=== PATIENT | female | born 1975 | race Caucasian/White ===

== ENCOUNTER 2018-08-26 15:43 | Outpatient (REF) | payer BC, SELFPAY ==
--- NOTE | 2018-08-26 14:45 | PAPFT_PTH ---
PATIENT: Danielle Andrews LOC: NCN #:[id number] AGE/SX: 43/F ROOM: RE08/26/[address]: Ruma Pelaez : 1975 BED: DIS: 08/26/2018 SPEC #: [id number] RECD: 08/27/18 13:03 STATUS: MADINA LINK #: [id number] BENJAMÍN: 08/26/18 14:[address]: Ruma Pelaez DEPT: [facility] Cytology RECD BY: Angie Saunders ENTERED: 08/27/18 13:03 SP TYPE: PAPFT DANYA DR: Juana Villar Tissues: 1 - CX/ENDOCX FOR PAP SMEARS Procedures: PAP THIN PREP/UVM Screening HPV DNA PROBE Comments: [id number]
[2018-08-26 21:00] LABS: Abs Immature Grans 0.01 k/cumm (0.0-0.09); Absolute Basophil Count 0.05 k/cumm (0.0-0.2); Absolute Eosinophil Count 0.13 k/cumm (0.0-0.7); Absolute Lymphocyte Count 2.64 k/cumm (1.2-3.4); Absolute Monocyte Count 0.67 k/cumm (0.11-0.7); Absolute Neutrophil Count 4.86 k/cumm (1.2-6.7); Basophils % 0.6; Eosinophils % 1.6; HCT 40.2 % (36.0-46.0); HGB 13.2 g/dL (12.0-15.5); Immature Grans % 0.1; Lymphocytes % 31.6; Mean Corp. HGB Concentration 32.8 g/dL (32.0-36.0); Mean Corpuscular Hemoglobin 27.7 pg (27.0-33.0); Mean Corpuscular Volume 84.5 fL (80-95); Mean Platelet Volume 11.5 fL (8.0-11.0); Neutrophils % 58.1; Platelet Count 246 x1000/uL (130-400); RBC 4.76 m/cumm (4.00-5.20); RBC Distribution Width 14.8 % (11.7-14.6); White Blood Cell Count 8.36 k/cumm (4.4-10.8)
[2018-08-26 21:21] LABS: Iron 42 ug/dL (50-175); Total Iron Binding Capacity 352 ug/dL (250-450); Transferrin Sat 12 % (15-50)
[2018-08-26 21:26] LABS: Anion Gap 10.2 mmol/L (3-11); BUN 14 mg/dL (7-18); CO2 25.8 mmol/L (21.0-32.0); CREATININE 0.84 mg/dL (0.55-1.02); Calcium 9.1 mg/dL (8.5-10.1); Chloride 104 mmol/L (98-107); Glucose 84 mg/dL (70-100); Potassium 3.9 mmol/L (3.5-5.1); Sodium 140 mmol/L (136-145); TSH (W/Ref FT4) 2.35 uIU/mL (0.358-3.74)
== END 2018-08-26 16:03 ==
LOC: NCHCN 15:43
PROVIDERS: PCP Nurse Practitioner Family; Visit Provider Nurse Practitioner Family
DX: Z00.00 Encounter for general adult medical examination without abnormal findings (principal); E07.9 Disorder of thyroid, unspecified; R13.10 Dysphagia, unspecified; F41.9 Anxiety disorder, unspecified; J01.90 Acute sinusitis, unspecified; Q79.6 Ehlers-Danlos syndromes; E66.3 Overweight; K30 Functional dyspepsia; Z12.4 Encounter for screening for malignant neoplasm of cervix; Z11.51 Encounter for screening for human papillomavirus (HPV)
CPT/HCPCS: 80048; 88142; 83540; 83550; 84443; 85025; 87624

== ENCOUNTER 2018-10-08 01:32 | Outpatient (CLI) | payer BC, SELFPAY ==
--- NOTE | 2018-10-08 12:00 | DI.US_ITS ---
SYMPTOMS/DIAGNOSIS: THYROID NODULE, E07.9 THYROID ULTRASOUND: Comparison report is 2013. The right lobe of the thyroid gland measures 5.6 x 1.9 x 1.8 cm. There is a complex mass seen in the right lobe. It has both solid and cystic components. It measures 2.2 x 1.4 x 1.5 cm. There has been slight increase in size compared to the prior examination (1.9 x 1.5 x 1.0 cm). Shadowing echogenic foci are seen consistent with calcification. There is peripheral and internal vascularity noted. The remainder of the right lobe is unremarkable. The left lobe measures 4.9 x 1.3 x 1.7 cm. There is a 0.3 x 0.2 x 0.5 cm anechoic avascular lesion in the right lobe. There does appear to be echogenic focus suggesting calcification internally. There is a 0.5 x 0.3 x 0.5 cm solid hypoechoic nodule in the inferior pole of the left lobe. There is internal vascularity noted. IMPRESSION: 1. Slight interval increase in size of vascular complex right lobe nodule since 2012. 2. New vascular solid nodule in the lower pole of the left lobe of the thyroid gland. 3. With increase in size of the nodule and the new nodule in the left thyroid, biopsy should be considered.
== END 2018-10-08 01:52 ==
PROVIDERS: PCP Nurse Practitioner Family; Visit Provider Nurse Practitioner Family
DX: E07.89 Other specified disorders of thyroid (principal); E04.2 Nontoxic multinodular goiter
CPT/HCPCS: 76536

== ENCOUNTER 2019-10-12 04:42 | Outpatient (CLI) | payer OTHER, SELFPAY ==
--- NOTE | 2019-10-12 14:00 | NS.NUTBLAN_ITS ---
Danielle here today for Medical Nutrition Therapy for anemia, Vit D Deficiency. Recently dx with ELS syndrome and reports weight gain, fatigue, diarrhea/constipation, hypermobility with joint dislocation requiring limited range of movement. Followed by PT weekly. Danielle is trying to lose weight but has been unable to do so for the last 2 years. Wt: 192 lbs, BMI 33. Desired weight 160-170 lbs. Diet recall indicates well balanced meals, mostly home cooked however, many days does not meet nutrient/protein needs. Fluid intake > 100 oz per day. No regular exercise plan, does 20 min of PT exercises daily. She reports excessive bleeding from menses resulting in anemia. She takes B complex, FeS04 and Vit D. To have labs drawn in October 2019 to assess levels. Danielle reports frequent digestive discomfort, alternating diarrhea/constipation and daily bloating and GERD. Estimated Needs for weight loss: 7610-0942 kcal, 90-100 g protein. Goal: 5 lbs loss per month Goal weight: 165 lbs. Intervention: Educated Danielle on how to follow lower carb, higher protein diet consisting of 0792-8345 kcal, 80-100 g protein to help her lose 1-2 lbs per week to goal weight of 165 lbs. Encouraged Danielle to have 40 min activity/exercise per day as recommended by PT. Recommend r/o of Celiac dx and other digestive disorders such as IBS, IBD. Plan: follow diet plan as recommended, fu with conventional underwriter weekly with diet log, follow up with PCP and request at next blood draw Celiac panel to r/o celiac dx, speak to PCP about digestive concerns. Continue vit/mineral supplementation as ordered by PCP. Follow up visit 11/16/19 at 2 PM. 30 min face to face
== END 2019-10-12 05:02 ==
PROVIDERS: PCP Nurse Practitioner Family; Visit Provider Nurse Practitioner Family
DX: E55.9 Vitamin D deficiency, unspecified (principal); D64.9 Anemia, unspecified; R63.5 Abnormal weight gain; Z71.3 Dietary counseling and surveillance
CPT/HCPCS: 97802

== ENCOUNTER 2019-11-30 12:21 | Outpatient (REF) | payer BC, SELFPAY ==
[2019-11-30 20:12] LABS: HCT 40.7 % (36.0-46.0); MCHC 31.9 % (32.0-36.0); MCV 87.7 fL (80-95); MPV 11.4 fL (8.0-11.0); Platelet Count 284 10^3/uL (130-400); RBC 4.64 10^6/uL (3.93-5.22); RDW 13.1 % (11.7-14.6); RDW-SD 41.8 fL; WBC 8.78 10^3/uL (4.4-10.8)
[2019-11-30 20:53] LABS: FREE T4 0.95 ng/dL (0.76-1.46); TSH 2.07 uIU/mL (0.36-3.74)
[2019-12-02 17:00] LABS: Tissue Transglutaminase Ab IgA <1.2 U/mL
== END 2019-11-30 12:41 ==
LOC: NCHCN 12:21
PROVIDERS: PCP Nurse Practitioner Family; Visit Provider Physician Assistant
DX: K58.9 Irritable bowel syndrome, unspecified (principal); E61.1 Iron deficiency; E07.9 Disorder of thyroid, unspecified
CPT/HCPCS: 85027; 83516; 84439; 84443

== ENCOUNTER 2020-12-07 13:55 | Outpatient (REF) | payer BC, SELFPAY ==
[2020-12-07 20:44] LABS: HCT 41.6 % (36.0-46.0); HGB 13.6 g/dL (11.2-15.7); MCH 28.6 pg (27.0-33.0); MCHC 32.7 % (32.0-36.0); MCV 87.6 fL (80-95); MPV 11.4 fL (8.0-11.0); Platelet Count 278 10^3/uL (130-400); RBC 4.75 10^6/uL (3.93-5.22); RDW 13.5 % (11.7-14.6); RDW-SD 43.8 fL; WBC 8.47 10^3/uL (4.4-10.8)
[2020-12-07 21:02] LABS: Iron 122 ug/dL (50-170)
[2020-12-07 21:06] LABS: Calculated LDL 112 mg/dL (<100); Cholesterol 196 mg/dL (<200); HDL Cholesterol 63 mg/dL (40-60); TSH (W/Ref FT4) 1.56 uIU/mL (0.36-3.74); Triglyceride 106 mg/dL (<150)
[2020-12-10 09:37] LABS: Vitamin D 25 Total 45.5 ng/mL (30-100)
== END 2020-12-07 13:56 | disposition home or self-care (01) ==
LOC: NCHCN 13:55
PROVIDERS: PCP Nurse Practitioner Family; Visit Provider Nurse Practitioner Family
DX: E07.9 Disorder of thyroid, unspecified (principal); E61.1 Iron deficiency; E78.5 Hyperlipidemia, unspecified; E55.9 Vitamin D deficiency, unspecified
CPT/HCPCS: 80061; 82306; 85027; 83540; 84443

== ENCOUNTER 2020-12-24 04:48 | Outpatient (CLI) | payer BC, SELFPAY ==
--- NOTE | 2021-01-10 10:19 | W.ZIOMONITOR ---
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 Average heart rate was 82, minimum 55, maximum 153 There were rare ventricular ectopic beats, very rare atrial premature beats There was no atrial fibrillation. There was no high-grade AV block. There were no pauses greater than 3 seconds No patient symptoms were reported
== END 2020-12-24 04:49 | disposition home or self-care (01) ==
LOC: RT 04:49
PROVIDERS: PCP Nurse Practitioner Family; Visit Provider Nurse Practitioner Family
DX: R00.2 Palpitations (principal)
CPT/HCPCS: 93246

== ENCOUNTER 2021-01-21 02:25 | Outpatient (CLI) | payer BC, SELFPAY ==
--- NOTE | 2021-01-21 | DI.MAMMO_ITS ---
Exam(s) MG MAMMO SCREENING 60 MIN DUR EXAM: MG MAMMO SCREENING 60 MIN DUR CLINICAL HISTORY: SCREENING, IMPLANTS,Z12.39. TECHNIQUE: Bilateral full field digital CC and MLO mammographic images were obtained with 3D tomosyn thesis and utilizing computer aided detection (CAD). Both conventional and implant displacement views were performed. COMPARISON: None FINDINGS: There are bilateral intact appearing retropectoral implants. There are no new spiculated masses nor malignant appearing microcalcification groups. There is no significant architectural distortion nor skin thickening-retraction. IMPRESSION: No radiographic evidence of malignancy. BI-RADS Category 1 - Negative Breast Density - Category C - Heterogeneously dense Breast density Category C or D implies that the patient has dense breast tissue. Dense breast tissue can make it harder to find cancer on a mammogram. Dense breast tissue is also associated with an incr eased risk of breast cancer. This information about the result of the mammogram report was provided to the patient to raise their awareness. Use this report when you speak with the patient about their risks for breast cancer, which includes their family history. At that time, you may recommend additional screening tests (Ultrasoun d or MRI) as these tests may add significant information. A negative radiographic report should not delay biopsy if a dominant or clinically suspicious mass is present. Up to ten percent of cancers are not identified on mammography. A negative report may reinforce clinical impression. Adenosis and dense breasts may obscure an underlying neoplasm. False positive reports average 6 to 10%. Patient will receive a letter notifying them of these results.
== END 2021-01-21 02:45 ==
PROVIDERS: PCP Nurse Practitioner Family; Visit Provider Nurse Practitioner Family
DX: Z12.31 Encounter for screening mammogram for malignant neoplasm of breast (principal); Z98.82 Breast implant status
CPT/HCPCS: 77063; 77067

== ENCOUNTER 2021-09-12 12:25 | Outpatient (REF) | payer OTHER, SELFPAY ==
[2021-09-13 11:36] LABS: COVID-19 RT-PCR UVMMC Result Negative (Negative)
== END 2021-09-12 12:26 | disposition home or self-care (01) ==
LOC: LBN 12:25
PROVIDERS: PCP Nurse Practitioner Family; Visit Provider Physician Assistant Medical
DX: Z20.822 Contact with and (suspected) exposure to COVID-19 (principal); J34.89 Other specified disorders of nose and nasal sinuses
CPT/HCPCS: U0003

== ENCOUNTER 2022-01-31 18:29 | Outpatient (REF) | payer OTHER, SELFPAY ==
[2022-01-31 18:46] LABS: Abs Immature Grans 0.04 10^3/uL (0.0-0.06); Absolute Basophil Count 0.06 10^3/uL (0.0-0.2); Absolute Eosinophil Count 0.17 10^3/uL (0.0-0.7); Absolute Lymphocyte Count 2.47 10^3/uL (1.2-3.4); Absolute Monocyte Count 0.77 10^3/uL (0.1-0.8); Absolute Neutrophil Count 6.36 10^3/uL (1.2-6.7); Basophils % 0.6; Eosinophils % 1.7; HCT 36.3 % (36.0-46.0); HGB 12.3 g/dL (11.2-15.7); Immature Grans % 0.4; MCH 28.8 pg (27.0-33.0); MCHC 33.9 % (32.0-36.0); MCV 85 fL (80-95); MPV 11.1 fL (8.0-11.0); Monocytes % 7.8; Neutrophils % 64.5; Platelet Count 261 10^3/uL (130-400); RBC 4.27 10^6/uL (3.93-5.22); RDW 13.5 % (11.7-14.6); RDW-SD 41.4 fL; WBC 9.87 10^3/uL (4.4-10.8)
[2022-01-31 20:20] LABS: ALT 21 U/L (14-59); AST 15 U/L (15-37); Albumin 3.9 g/dL (3.4-5.0); Alkaline Phosphatase 74 U/L (46-116); Anion Gap 7.2 mmol/L (3-11); BUN 18 mg/dL (7-18); Bilirubin, Total 0.2 mg/dL (0.2-1.0); CO2 28.8 mmol/L (21.0-32.0); CREATININE 0.8 mg/dL (0.55-1.02); Calcium 8.9 mg/dL (8.5-10.1); Chloride 104 mmol/L (98-107); Estimated GFR 91.97 (mL/min/1.73m2); Glucose 77 mg/dL (74-106); Potassium 4.1 mmol/L (3.5-5.1); Sodium 140 mmol/L (136-145); TSH (W/Ref FT4) 2.12 uIU/mL (0.36-3.74); Total Protein 6.7 g/dL (6.4-8.2)
[2022-02-03 04:45] LABS: Vitamin D 25 Total 50.1 ng/mL (30-100)
[2022-02-03 10:46] LABS: FSH 10.6 mIU/mL (See Note); LH 15.8 mIU/mL (See Note)
== END 2022-01-31 18:30 | disposition home or self-care (01) ==
LOC: NCHCN 18:29
PROVIDERS: PCP Nurse Practitioner Family; Visit Provider Family Medicine
DX: E04.1 Nontoxic single thyroid nodule (principal); N92.4 Excessive bleeding in the premenopausal period; Q79.60 Ehlers-Danlos syndrome, unspecified; Z00.00 Encounter for general adult medical examination without abnormal findings
CPT/HCPCS: 80053; 82306; 83001; 83002; 84443; 85025

== ENCOUNTER 2023-02-20 18:14 | Outpatient (REF) | payer OTHER, SELFPAY ==
[2023-02-20 15:09] LABS: Abs Immature Grans 0.02 10^3/uL (0.0-0.06); Absolute Basophil Count 0.05 10^3/uL (0.0-0.2); Absolute Eosinophil Count 0.08 10^3/uL (0.0-0.7); Absolute Lymphocyte Count 1.87 10^3/uL (1.2-3.4); Absolute Monocyte Count 0.46 10^3/uL (0.1-0.8); Absolute Neutrophil Count 4.56 10^3/uL (1.2-6.7); Basophils % 0.7; Eosinophils % 1.1; HCT 42.9 % (36.0-46.0); HGB 14.1 g/dL (11.2-15.7); Immature Grans % 0.3; Lymphocytes % 26.6; MCHC 32.9 % (32.0-36.0); MCV 88 fL (80-95); MPV 10.9 fL (8.0-11.0); Monocytes % 6.5; Neutrophils % 64.8; Platelet Count 290 10^3/uL (130-400); RBC 4.87 10^6/uL (3.93-5.22); RDW 13.2 % (11.7-14.6); RDW-SD 43.2 fL; WBC 7.04 10^3/uL (4.4-10.8)
[2023-02-20 15:38] LABS: Vitamin D 25 Total 56.7 ng/mL (30-100)
[2023-02-20 15:50] LABS: Iron 124 ug/dL (50-170); Total Iron Binding Capacity 373 ug/dL (250-450); Transferrin Sat 33 % (15-50)
[2023-02-20 16:05] LABS: Ferritin 21 ng/mL (8-252); Magnesium 2.1 mg/dL (1.8-2.4); Vitamin B12 373 pg/mL (193-986)
== END 2023-02-20 18:15 | disposition home or self-care (01) ==
LOC: NCHCN 18:14
PROVIDERS: PCP Nurse Practitioner Family; Visit Provider Nurse Practitioner Family
DX: R53.83 Other fatigue (principal); E04.1 Nontoxic single thyroid nodule; R51.9 Headache, unspecified; E55.9 Vitamin D deficiency, unspecified; F41.9 Anxiety disorder, unspecified; K58.9 Irritable bowel syndrome, unspecified; Z00.00 Encounter for general adult medical examination without abnormal findings
CPT/HCPCS: 82306; 82607; 82728; 83540; 83550; 83735; 84443; 85025

== ENCOUNTER → 2023-03-17 02:28 | Outpatient (CLI) | payer OTHER, SELFPAY ==
--- NOTE | 2023-03-17 | DI.MAMMO_ITS ---
Exam(s) MG MAMMO SCREENING 60 MIN DUR EXAM: MG MAMMO SCREENING 60 MIN DUR CLINICAL HISTORY: SCREENING, Z12.31, IMPLANTS TECHNIQUE: Bilateral full field digital CC and MLO mammographic images were obtained with 3D tomosyn thesis and utilizing computer aided detection (CAD). COMPARISON: Available for comparison. FINDINGS: There are bilateral breast implants. Since the prior examination there does appear to be mild collap se of the right implant. Masses/Architectural Distortion: None seen. Microcalcifications: No suspicious pleomorphic-type are seen. Skin Thickening/Nipple Retraction: None. IMPRESSION: 1. No significant interval change with no specific features of malignancy noted. 2. Note is made of mild collapse of the right breast implant. 3. Unless there is more urgent need, screening mammography is recommended, as per [place] [employer] guidelines. BI-RADS Category 1 - Negative Breast Density - Category B - Scattered areas of fibroglandular density Breast density category C or D implies that the patient has dense breast tissue. Dense breast tissue is very common and is not abnormal but dense breast tissue can make it harder to find cancer on a ma mmogram. Also, dense breast tissue may increase their breast cancer risk. This information about the result of the mammogram report was provided to the patient to raise their awareness. Use this report when you speak with the patient about their risks for breast cancer, which includes their family hist ory. At that time, you may recommend for more screening tests (Ultrasound or MRI) as they might be us eful based on their risk. A negative radiographic report should not delay biopsy if a dominant or clinically suspicious mass is present. Up to ten percent of cancers are not identified on mammography. A negative report may reinforce clinical impression. Adenosis and dense breasts may obscure an underlying neoplasm. False positive reports average 6 to 10%. Patient will receive a letter notifying them of these results. Unexpected result
== END ==
PROVIDERS: PCP Nurse Practitioner Family; Visit Provider Nurse Practitioner Family
DX: Z12.31 Encounter for screening mammogram for malignant neoplasm of breast (principal)
CPT/HCPCS: 77063; 77067

== ENCOUNTER 2023-05-25 07:01 | Day surgery (SDC) | payer OTHER, SELFPAY ==
--- NOTE | 2023-05-24 14:07 | W.PM.DSUDISC ---
Date of service: 05/25/23 Time of Service: 08:09 Discharge Plan Disposition Patient Disposition: Home Condition: Good Discharge Details Reason For Visit: screening colonoscopy Attending Provider: Leonidas Dawn Primary Care Provider: Ruma Pelaez Home Meds and New Rx's Prescriptions: Continued multivitamin Tablet 1 tab PO DAILY Fiber Gummies 2 gram tablet,chewable 2 g PO DIRECTED levonorgestrel-ethinyl estrad 0.1-20 mg-mcg tablet 1 tab PO DAILY Qty: 84 4RF amitriptyline 10 mg tablet 10 mg PO QHS cyanocobalamin (vitamin B-12) 1,000 mcg capsule 1,000 mcg PO DAILY alprazolam [Xanax] 0.5 mg tablet 0.5 mg PO DAILY PRN Rx Instructions: for flying Discontinued bisacodyl [Dulcolax (bisacodyl)] 5 mg tablet,delayed release (DR/EC) 5 mg PO ONCE Qty: 4 0RF Rx Instructions: Colonoscopy Bowel Prep- Per Instructions polyethylene glycol 3350 17 gram/dose powder 238 g PO ONCE Qty: 238 0RF Rx Instructions: Colonoscopy Bowel Prep- Per Instructions Discharge Instructions Additional Instructions: Danielle, we were able to finish your colonoscopy today without any difficulty. Your prep was excellent, and we could see everything just fine. Your colon is totally normal. At this point, there is nothing to worry about. Based on your family history, I do recommend another colonoscopy in 5 years. If you have any questions in the meantime, please do not hesitate to call. 1. If tolerated, consume a soft, low fiber diet for 1-2 days. 2[address] Do not drive, drink alcohol, operate machinery, make critical decisions, or do activities that require coordination or balance for 24 hours. 3. Because air was put into your colon during the procedure, expelling air from your rectum (passing gas or farting) is normal. 4. You may not have a bowel movement for 1-3 days because of the colonoscopy prep. This is normal. 5. Go directly to the emergency room if you notice any of the following: Develop chills (warm to touch), or if you have a thermometer and your temperature is above 101 Difficulty breathing or difficultly swallowing Persistent vomiting Severe abdominal pain, other than gas cramps Severe chest pain Black, tarry stools Any bleeding ? exceeding one tablespoon 6. Call your physician if the site where your intravenous was started becomes red, swollen, painful, and warm to touch. 7. Your physician has reviewed your pre-procedure medications. Please continue to take those medications as previously ordered. You will be given specific information/education regarding any changes to your medications before leaving. Activity:: Activity as Tolerated Diet:: As Tolerated Discharge Orders Discharge Orders: Discharge Order (Routine); Ordered 05/24/23 Ordered By: Leonidas Dawn DS: Diagnosis Discharge Diagnosis (1) Encounter for screening colonoscopy: Status: Acute Asessment and Plan: Negative screening colonoscopy; based on family history, recommend 5-year follow-up
--- NOTE | 2023-05-24 14:09 | W.COLOREPORT ---
Date of service: 05/25/23 Time of Service: 08:10 Colonoscopy Report Date of procedure: 05/25/23 Pre-op diagnosis general: screening colonoscopy Post-op diagnosis procedure note: other (Negative screening colonoscopy) Procedure: Colonoscopy Surgeon: Leonidas Dawn Anesthesia Type: General:No Airway Estimated blood loss (mL): 0 Pathology: none sent Complications: None Disposition: same day Indications: Danielle is a 47 year old woman who needs her first screening colonoscopy Prep: Miralax/Dulcolax Procedure Start Time: 07:48 Procedure End Time: 08:03 Retraction Time: 8 Findings: Negative screening colonoscopy Procedure Description: After the induction of monitored anesthetic care, and with the patient in left lateral decubitus position, I began by performing an external anorectal exam.? Perineum and skin were normal, as was the anal verge.? There was no evidence of external hemorrhoids.? Next, I performed a digital rectal exam.? I did not appreciate any abnormal findings.? Next, I advanced a colonoscope into the rectal vault.? I performed retroflexion.? This was normal.? Using insufflation, I then advanced the colonoscope beyond the rectal folds and into the sigmoid colon before advancing towards the cecum.? The quality of the prep was excellent.? The scope was noted to be in the cecum by identification of the ileocecal valve and appendiceal orifice.? I then began withdrawing the colonoscope using repeated irrigation as necessary for full evaluation of the colonic mucosa. ?Once the scope was withdrawn to the level of the rectum, great care was taken to examine portions of the rectal folds. I did not see any signs of tumors, polyps, or any other abnormalities.? Finally, the scope was withdrawn and the patient was brought to the same-day surgery recovery unit as the anesthetic wore off. ?The findings and instructions were shared with the patient prior to discharge. [place] Bowel Prep [place] Bowel Prep Right Colon: 3 Left Colon: 3 Transverse Colon: 3 Total Score: 9
--- NOTE | 2023-05-24 15:56 | W.ANESPRE ---
General Info Date of Service Date Performed: 05/25/23 Height: 5 ft 6 in Weight: 78.925 kg Body Mass Index (BMI): 28.0 Surgical Procedure: Operation Date: 05/25/23 08:20 Proposed Procedure Side Surgeon kacie Dawn MD Meds Allergies and Home Medications Allergies Allergy/AdvReac Type Severity Reaction Status Date / Time Penicillins Allergy Severe Anaphylaxis Unverified 05/25/23 07:06 Home Medication Medication Instructions Recorded inulin 2 gram chewable tablet 2 g PO DIRECTED 08/28/22 (Fiber Gummies) levonorgestrel-ethinyl estradiol 1 tab PO DAILY #84 tabs 08/28/22 0.1 mg-20 mcg tablet multivitamin 1 tab PO DAILY 08/28/22 alprazolam 0.5 mg tablet (Xanax) 0.5 mg PO DAILY PRN 03/31/23 cyanocobalamin (vitamin B-12) 1,000 mcg PO DAILY 03/31/23 1,000 mcg capsule amitriptyline 10 mg tablet 10 mg PO QHS 04/29/23 Current Visit Medications: Current Medications Generic Name Dose Route Start Last Admin Trade Name Freq PRN Reason Stop Dose Admin Hyoscyamine Sulfate 0.125 mg 05/24/23 14:10 Hyoscyamine 0.125 Mg Sl/Oral/Chew SL 06/23/23 14:09 DIRECTED PRN Ringer's Solution 1,000 mls @ 80 mls/hr 05/25/23 06:00 IV 06/21/23 23:59 [facility] IV Miscellaneous Supplies 1 each 05/25/23 06:00 Iv Access IV 06/21/23 23:59 DIRECTED ROD Ondansetron HCl 4 mg 05/24/23 14:10 Ondansetron 4 Mg/2 Ml Vial IVP 06/23/23 14:09 Q4H PRN PRN Nausea / Vomiting Sodium Chloride 0 ml 05/25/23 06:00 Normal Saline Flush 10 Ml Syr IV 06/21/23 23:59 PRN PRN Sodium Chloride 0 ml 05/25/23 06:00 Normal Saline 10 Ml Vial IJ 06/21/23 23:59 DIRECTED PRN Sterile Water 0 ml 05/25/23 06:00 Water,Injection,Sterile 10 Ml Vial IJ 06/21/23 23:59 DIRECTED PRN PFSH Active Problems Active Problems: Problem Status Onset Code Encounter for screening colonoscopy Z12.11 Overweight E66.3 Vitamin D deficiency E55.9 Tinnitus, bilateral H93.13 Irritable bowel syndrome K58.9 Thyroid nodule E04.1 Borderline hyperlipidemia E78.5 Chest heaviness R07.89 Fatigue R53.83 Paresthesia of bilateral legs R20.2 Perimenopausal N95.1 Migraine G43.909 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 stated she had covid and a sinus inffection which is where the chest heaviness comes from in her chart Medical History Comments:: Pt. states her nephew (sister's son) has a hrd time waking up from anesthesia Surgical History Surgical History H/O breast surgery Tobacco Smoking/Tobacco Use Status: Never Alcohol Alcohol Intake: current Alcohol intake frequency: holidays/special occasions only Substance Use Substance use: Never Substance use type: does not use Prental History History 3 Para Hx # Term Pregnancies 2 Multiple births Hx # Pregnancies Ectopic pregnancies AB induced Hx Number of Living Children AB spontaneous 1 Past Pregnancies Del. Date GA/Weeks # Preg Succ Route Wgt Sex Labor Lgth Anesthesia Location Prov Complic 12/26/04 Yes vaginal 3968.933 g [facility] 01/13/11 Yes vaginal 4110.681 g [facility] Delivery Date: 12/26/04 Last Updated by: Idania Lauren Delivery Date: 01/13/11 Last Updated by: Idania Melissa Vital Signs and Lab Results Vital Signs Most Recent Vital Signs in EMR: Temp Pulse Resp BP Pulse Ox 36.6 C 74 16 129/98 H 100 05/25/23 07:15 05/25/23 07:15 05/25/23 07:15 05/25/23 07:15 05/25/23 07:15 Lab Results Blood Type / Crossmatch: No Data to Display Complete Blood Count: No Data to Display Complete Metabolic Panel: No Data to Display Liver Function Panel: No Data to Display Coagulation Panel: No Data to Display Cardiac Panel: No Data to Display Arterial Blood Gas: No Data to Display Venous Blood Gas: No Data to Display Pancreas Panel: No Data to Display Thyroid Panel: No Data to Display Infectious Disease: No Data to Display Blood Cultures: No Data to Display Toxicology Panel: No Data to Display Panel: No Data to Display Anesthesia Assessment and Plan Anesthesia History Personal History: No History of Anesthesia Complications Family History: Malignant Hyperthermia Exercise Tolerance Exercise Tolerance: Metabolic Equivalents>4 Cardiac & Pulmonary Exam Cardiac Exam: Normal S1/S2 Heart Sounds Pulmonary Exam: Clear Bilateral Breath Sounds Implantable Cardiac Device Does patient have a Pacemaker or an ICD?: No Airway Exam Known Difficult Airway: No Mallampati Class: 2 Mouth Opening: Normal (> 3cm) Thyromental Distance: Greater than 3 cm Neck Range of Motion: Full ROM Neck Circumference: Normal Teeth Condition: Normal Dentition ASA Classification ASA Score: ASA 2 Emergency Case?: No NPO Status NPO Status: NPO Clears >2 hours, Solids >8 hours Status Status: Negative HCG Anesthesia Plan Resuscitation Status: Full Code Anesthesia Technique: General Anesthesia Airway Planned: Natural Airway Monitors Used: Standard Monitors Preoperative Comments:: 47 yo female for colo. Sig PMHx: brady-danlos, anxiety, never smoker, occ EtOH.
[2023-05-25 07:15] VITALS: BP 129/98; PULSE 74; RESP 16; TEMP 36.6; O2SAT 100
[2023-05-25] MEDS: Lactated Ringers 1,000 ML 80 ML IV (07:22)
[2023-05-25 07:26] VITALS: BMI 28.0
[2023-05-25 08:08] VITALS: BP 105/78; PULSE 88; RESP 16; TEMP 36.6; O2SAT 100
--- NOTE | 2023-05-25 08:14 | W.ANESPOSTOP ---
Postoperative Evaluation Date, Time and Location Date Performed: 05/25/23 Time Performed: 08:14 Patient Location: Day Surgery Unit Vital Signs Most Recent Imported Vital Signs: Most Recent Vital Signs Temp Pulse Resp BP Pulse Ox 36.6 C 88 16 105/78 100 05/25/23 08:08 05/25/23 08:08 05/25/23 08:08 05/25/23 08:08 05/25/23 08:08 Pain Score Most Recent Pain Score: Most Recent Pain Score Pain Level 0 05/25/23 08:08 Assessment Mental Status: Awake (Alert & Oriented to Patient Baseline) Airway and Respiratory Function: Patent airway with normal (patient baseline) respiratory exam Cardiovascular Function: Hemodynamically Stable Hydration Status: Adequately Hydrated Nausea & Vomiting: No Nausea or Vomiting Pain: Pt. Denies Any Pain Peripheral Nerve Block: Patient did not receive a nerve block
[2023-05-25 08:38] VITALS: BP 116/83; PULSE 74; RESP 16; TEMP 36.6; O2SAT 100
== END 2023-05-25 08:42 | disposition home or self-care (01) ==
PROVIDERS: PCP Nurse Practitioner Family; Visit Provider Surgery
PROC: 0DJD8ZZ Inspection of Lower Intestinal Tract, Via Natural or Artificial Opening Endoscopic (ICD-10-PCS; CPT 45378; principal; 2023-05-25 08:15)
DX: Z12.11 Encounter for screening for malignant neoplasm of colon (principal)
CPT/HCPCS: 45378; 81025; J2704

== ENCOUNTER 2024-02-22 17:16 | Outpatient (REF) | payer OTHER, SELFPAY ==
--- NOTE | 2024-02-22 08:00 | PAPFT_PTH ---
PATIENT: Danielle Andrews LOC: [facility]#:[id number] AGE/SX: 48/F ROOM: RE02/22/[address]: Ruma Pelaez : 1975 BED: DIS: 02/22/2024 SPEC #: [id number] RECD: 02/22/24 18:38 STATUS: MADINA REQ #: [id number] BENJAMÍN: 02/22/24 08:[address]: Ruma Pelaez DEPT: [facility] Cytology RECD BY: Angie Saunders Tissues: 1 - CX/ENDOCX FOR PAP SMEARS Procedures: PAP THIN PREP/UVM Screening HPV DNA PROBE Comments: [id number] (HPV 16 & 18/45) (CHLAMYDIA/GC)
[2024-02-23 12:01] LABS: Chlamydia Result Negative (Negative); GC Result Negative (Negative)
== END 2024-02-22 17:17 | disposition home or self-care (01) ==
LOC: NCHCN 17:16
PROVIDERS: PCP Nurse Practitioner Family; Visit Provider Nurse Practitioner Family
DX: Z12.4 Encounter for screening for malignant neoplasm of cervix (principal); Z11.3 Encounter for screening for infections with a predominantly sexual mode of transmission
CPT/HCPCS: 87491; 87591; 88142; 87624

== ENCOUNTER 2025-03-30 14:21 | Outpatient (CLI) | payer OTHER, SELFPAY ==
--- NOTE | 2025-03-30 10:15 | DI.RAD_ITS ---
Exam(s) XR HIP RT COMPLETE AP PELVIS EXAM: XR HIP RT COMPLETE AP PELVIS CLINICAL HISTORY: RIGHT HIP PAIN. TECHNIQUE: 2D digital imaging was performed. COMPARISON: No exams were available for comparison FINDINGS: Two views No evidence of acute fracture nor dislocation or abnormal soft tissue densities. However, there appears to be an element of ???over covering??? of the right femoral head by the superolateral aspect of the acetabulum. May indicate an element of pincer-type JOSE. Significantly lesser finding like this on the opposite-left side. There is no narrowing of the joint space itself. Bone density normal. No osseous lesions. Visualized sacroiliac joints appear unremarkable. IMPRESSION: Right hip findings as above. Possible JOSE DATA REPOSITORY: RADIATION DOSE DELIVERED:
== END 2025-03-30 14:22 | disposition home or self-care (01) ==
LOC: DIORS 14:21
PROVIDERS: PCP Nurse Practitioner Family; Visit Provider Student in an Organized Health Care Education/Training Program
DX: M25.551 Pain in right hip (principal)
CPT/HCPCS: 73502

== ENCOUNTER → 2025-03-31 00:21 | Outpatient (CLI) | payer OTHER, SELFPAY ==
--- NOTE | 2025-03-31 | DI.MAMMO_ITS ---
Exam(s) MG MAMMO SCREENING 60 MIN DUR EXAM: MG MAMMO SCREENING 60 MIN DUR CLINICAL HISTORY: SCREENING, Z12.31. TECHNIQUE: Bilateral full field digital CC and MLO mammographic images were obtained with 3D tomosynthesis and utilizing computer aided detection (CAD). COMPARISON: Prior mammograms were reviewed. FINDINGS: Bilateral retropectoral implants are again noted. There are no new spiculated masses nor new malignant appearing microcalcification groups. There is no significant architectural distortion nor skin thickening-retraction. IMPRESSION: No radiographic evidence of malignancy. BI-RADS Category 1 - Negative Breast Density - Category C - The breast are heterogeneously dense, which may obscure small masses. Breast density Category C or D implies that the patient has dense breast tissue. Dense breast tissue can make it harder to find cancer on a mammogram. Dense breast tissue is also associated with an increased risk of breast cancer. This information about the result of the mammogram report was provided to the patient to raise their awareness. Use this report when you speak with the patient about their risks for breast cancer, which includes their family history. At that time, you may recommend additional screening tests (Ultrasound or MRI) as these tests may add significant information. A negative radiographic report should not delay biopsy if a dominant or clinically suspicious mass is present. Up to ten percent of cancers are not identified on mammography. A negative report may reinforce clinical impression. Adenosis and dense breasts may obscure an underlying neoplasm. False positive reports average 6 to 10%. Patient will receive a letter notifying them of these results.
== END ==
LOC: DI 00:21
PROVIDERS: PCP Nurse Practitioner Family; Visit Provider Nurse Practitioner Family
DX: Z12.31 Encounter for screening mammogram for malignant neoplasm of breast (principal)
CPT/HCPCS: 77063; 77067

== ENCOUNTER → 2025-04-10 00:29 | Outpatient (CLI) | payer OTHER, SELFPAY ==
--- NOTE | 2025-04-10 06:45 | DI.MRI_ITS ---
Exam(s) MR LOWER JOINT RT WO EXAM: MR LOWER JOINT RT WO CLINICAL HISTORY: PAIN,tendinitis rt hip,femoral acetabular impingement,m25.859,m76.891 TECHNIQUE: Multiplanar multisequence MRI of right hip was performed COMPARISON: CR XR HIP RT COMPLETE AP PELVIS from 03/30/2025 FINDINGS: Bones: There is no evidence of a fracture or avascular necrosis. There is prominence of the roof of the right acetabulum with excessive covering of the femoral head. There is asymmetric narrowing of the superior joint space. The findings appear consistent with femoral acetabular impingement. There is blunting and abnormal signal seen within the anterior labrum consistent with a tear. The SI joints and symphysis pubis are well maintained. Musculotendinous structures: There is mild hyperintense signal seen adjacent to the greater trochanter which may reflect trochanteric bursitis. Intrapelvic structures demonstrate no significant abnormality. IMPRESSION: 1. Prominence of the acetabular roof with excessive covering of the femoral head suspicious for femoral acetabular impingement. 2. Asymmetric narrowing of the superior joint space of the right hip. 3. Blunted appearance and abnormal signal of the anterior right labrum consistent with a tear. DATA REPOSITORY:
== END ==
LOC: DI 00:29
PROVIDERS: PCP Nurse Practitioner Family; Visit Provider Student in an Organized Health Care Education/Training Program
DX: M25.851 Other specified joint disorders, right hip (principal); M76.891 Other specified enthesopathies of right lower limb, excluding foot
CPT/HCPCS: 73721